=== PATIENT | male | born 1975 | race African-American/Black ===

== ENCOUNTER 2020-10-18 12:15 | Emergency (ER) | payer MEDICAID ==
[~2020-10-18] VITALS: Ht 177.8 cm; Wt 82.0 kg
[2020-10-18] MEDS ORDERED: ACETAMINOPHEN 325MG TABLET PO ONE (13:00)
[2020-10-18] MEDS ORDERED: IBUPROFEN 400MG TABLET PO ONE (13:00)
[2020-10-18 13:20] VITALS: BP 110/78
[2020-10-18] MEDS ORDERED: ACET-2708 MT (14:11)
[2020-10-18] MEDS ORDERED: NAPR-1176 MT (14:11)
== END 2020-10-18 14:26 | disposition home or self-care (01) ==
LOC: ER 12:15
DX: M79.604 Pain in right leg (principal); W01.0XXA Fall on same level from slipping, tripping and stumbling without subsequent striking against object, initial encounter; Y93.89 Activity, other specified; Y92.89 Other specified places as the place of occurrence of the external cause
CPT/HCPCS: 73590; 99283